=== PATIENT | female | born 2005 | race Caucasian/White ===

== ENCOUNTER → 2024-06-24 | Outpatient (CLI) | payer OTHER ==
[2024-06-24 09:38] LABS: BASO # 0.01 K/mm3 (0.02-0.10); EOS # 0.26 K/mm3 (0.04-0.40); EOS % 3.4 % (0.1-4.0); HEMATOCRIT 42.7 % (35.0-45.0); HEMOGLOBIN 13.6 g/dL (12.0-15.0); LYMPH# 1.66 K/mm3 (1.20-3.40); MEAN CELL VOLUME 81 fl (78-95); MEAN CORPUSCULAR HEMOGLOBIN 26 pg (26-32); MEAN CORPUSCULAR HGB CONC 32 g/dL (33-37); MEAN PLATELET VOLUME 11.7 fl (7.4-10.4); MONO # 0.69 K/mm3 (0.10-0.60); NEU # 4.98 K/mm3 (1.40-6.50); PLATELET COUNT 377 K/mm3 (130-400); RED BLOOD COUNT 5.25 M/mm3 (4.10-5.30); RED CELL DISTRIBUTION WIDTH 13.6 % (11.5-14.5); WHITE BLOOD COUNT 7.6 K/mm3 (4.8-10.8)
[2024-06-24 09:46] LABS: ALBUMIN 4.9 g/dL (3.5-5.0); SODIUM 138 mmol/L (136-145)
[2024-06-24 09:47] LABS: CALCIUM 9.8 mg/dL (8.3-10.5)
[2024-06-24 09:49] LABS: GLUCOSE 86 mg/dL (65-105); TOTAL PROTEIN 9.6 g/dL (6.4-8.3)
[2024-06-24 09:50] LABS: CARBON DIOXIDE 22 mmol/L (22-29)
[2024-06-24 09:51] LABS: TOTAL BILIRUBIN 0.4 mg/dL (0.2-1.2)
[2024-06-24 09:54] LABS: AST-SGOT 20 U/L (5-34)
[2024-06-24 09:55] LABS: ALT/SGPT 14 U/L (0-55)
[2024-06-24 10:02] LABS: TROPONIN-I < 0.030 ng/mL (0.00-0.033)
[2024-06-25 11:40] LABS: ANA SCREEN with REFLEX Negative (Negative)
== END ==
LOC: LAB 09:16
PROVIDERS: Physician Assistant
DX: Z13.220 Encounter for screening for lipoid disorders (principal); R59.1 Generalized enlarged lymph nodes; R07.9 Chest pain, unspecified; K90.9 Intestinal malabsorption, unspecified; R53.83 Other fatigue; Z98.890 Other specified postprocedural states

== ENCOUNTER → 2024-07-20 | Outpatient (CLI) | payer OTHER | LOC: RAD 07:14 | DX: R10.9 Unspecified abdominal pain (principal) ==

== ENCOUNTER → 2024-08-27 | Outpatient (CLI) | payer OTHER ==
[2024-08-27 22:40] LABS: IGM,SERUM 126 mg/dL (33-293); IMMUNOGLOBULIN A 264 mg/dL (65-421); IMMUNOGLOBULIN G 1798 mg/dL (552-1631)
[2024-08-30 14:09] LABS: KAPPA LAMBDA RATIO 0.92 (())
[2024-08-31 15:11] LABS: A/G RATIO (PEP) 1.2 (0.7-1.7); BETA GLOBULINS (PEP) 1.1 g/dL (0.7-1.3)
== END ==
LOC: LAB 07:31
PROVIDERS: Nurse Practitioner
DX: Z80.6 Family history of leukemia (principal)